=== PATIENT | female | born 1980 | race Caucasian/White ===

== ENCOUNTER 2018-02-24 11:46 | Day surgery (SDC) | payer BC ==
[2018-02-24] MEDS ORDERED: CEFAZOLIN 2GM (PREMIX IV) 2 GM/50 ML BAG ONE (12:53)
[2018-02-24] MEDS ORDERED: Ringers Lactate 1,000 ML IV ONE (12:53)
[2018-02-24] MEDS ORDERED: FENTANYL CITR 100 MCG/2 ML ONE ×2 (12:56→15:16)
[2018-02-24] MEDS ORDERED: PROPOFOL 200 MG/20 ML VIAL IV ONE ×2 (12:56→15:16)
[2018-02-24] MEDS ORDERED: MIDAZOLAM HCL 2 MG/2 ML INJ ONE ×2 (12:58→15:16)
[2018-02-24] MEDS ORDERED: ONDANSETRON 4 MG/2 ML VIAL ONE (13:37)
[2018-02-24] MEDS ORDERED: LIDOCAINE 1% MPF 2 ML AMPULE ONE (13:37)
[2018-02-24 13:56] LABS: Specific Gravity 1.015 (1.005-1.030)
[2018-02-24] MEDS ORDERED: KETOROLAC 30 MG/ML INJ ONE (15:22)
[2018-02-24] MEDS ORDERED: HYDROCODONE/APAP 5/325 MG TAB ONE (17:04)
[2018-02-24] MEDS ORDERED: IBUPROFEN 200 MG TAB PO ONE (17:04)
--- NOTE | 2018-02-27 18:58 | OP ---
Date of Procedure: 02/24/2018 Surgeon: Clementina Rajput MD Float Tender: None. Preoperative Diagnoses: Menorrhagia, dysmenorrhea. Postoperative Diagnoses: Menorrhagia, dysmenorrhea. Procedures Performed: Hysteroscopy, endometrial ablation with [place] ThermAblator. Complications: None. Drains: None. Specimens: None. Condition: The patient's condition is stable. Indications For Procedure: The patient is a 37-year-old with history of heavy menstrual periods. Sh e had endometrial sampling that showed proliferative endometrium without any atypia or malignancy. T he patient is a smoker, so she has contraindication for oral contraceptives. Discussed about the alt ernatives of Depo and Mirena IUD. She is status post tubal ligation without any desire for further f ertility. She declined the use of Mirena IUD. She had used it for control and she kept having bleeding continuously and pain as well, so the Mirena was removed in 3 months. Concerned about ____ wanted to proceed with an ablation. 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 Given her a ge, the chance for recurrence is higher for bleeding with ablation. At this point, understanding silver t, she wanted to proceed with an ablation, which was completely safe, and she wanted to have the [facility] surgery. Procedure In Detail: She was consented and brought to the OR. Two grams of Ancef were given preop. The patient was taken back to the OR, placed in a supine fashion. General anesthesia was given, janett adrianne in a dorsal lithotomy position in [facility]. Prep x3 with Betadine was done in the vulva, v agina, and the cervix. Speculum was used to expose the cervix, anterior lip was grasped with 2 Allis clamps, dilated to 16-Kazakh. The HTA sheath was primed. Diagnostic hysteroscopy was performed thr ough the cervical canal into the uterine cavity. The cavity was empty. Both tubal ostia were well v isualized. The endometrium appeared to be unremarkable. After placing the tip of the scope in the m iddle of the uterine cavity, one of the Allis clamp was hooked onto the HTA sheath. Two Ray-Tecs wer e tucked in the posterior cul-de-sac while the speculum was left in place. Cavity integrity test was done and it passed, proceeded with ablation. The entire heating cycle, 10 minute ablation cycle, an d 1.5 minute cooling cycle were conducted without any interruption or leaks. At the end, the uterus was reinspected. The diagnostic hysteroscopy and cavity were rinsed out as well. There was good abl ation effect globally. The scope was removed. Ray-Tecs were removed. All instrument, needle, and s ponge counts were done and were correct at the end of the case. The patient tolerated the procedure well. She was recovered from anesthesia in the OR and taken to the PACU in stable condition. FREEMAN/EDNA Voice ID: [id number] Report ID: [id number]
== END 2018-02-24 17:25 | disposition home or self-care (01) ==
LOC: PRE 11:46 → OR 17:25
PROVIDERS: ATTEND Obstetrics & Gynecology
PROC: 0U5B8ZZ Destruction of Endometrium, Via Natural or Artificial Opening Endoscopic (ICD-10-PCS; principal; 2018-02-24 13:30)
DX: N92.0 Excessive and frequent menstruation with regular cycle (principal); N94.6 Dysmenorrhea, unspecified; E03.9 Hypothyroidism, unspecified; D50.9 Iron deficiency anemia, unspecified; F17.200 Nicotine dependence, unspecified, uncomplicated; Z79.899 Other long term (current) drug therapy
CPT/HCPCS: 81025; J0690; J2001; J2250; J2405; J2704; J3010